=== PATIENT | female | born 1965 | race Caucasian/White ===

== ENCOUNTER 2020-03-28 21:48 | Emergency (ER) | payer MEDICAID ==
[2020-03-28] MEDS ORDERED: Cyclobenzaprine 10 MG Tab PO ONE (21:49)
[2020-03-28] MEDS ORDERED: Take Home: Cyclobenzaprine 10 MG Tab, 4 Tab Pack PO ONE (22:33)
[2020-03-28] MEDS ORDERED: Ketorolac 60 MG/2 ML SDV IM ONE (22:33)
--- NOTE | 2020-03-28 22:38 | EDM.PDOC ---
ED HPI GENERAL MEDICAL PROBLEM - General Chief Complaint: Neck Problem Stated Complaint: Neck pain Time Seen by Provider: 03/28/20 22:22 Source of Information: Reports: Patient History Limitations: Reports: No Limitations - History of Present Illness INITIAL COMMENTS - FREE TEXT/NARRATIVE: This patient reports she was brushing her hair 4 days ago and started having left sided neck and upper back pain and tightness. She reports she has tried heat, cold, oxycodone, massage and nothing has helped the pain. She denies n, v, d, f, numbness, tingling, direct trauma, urinary/natalie incontinence. Onset Date: 03/24/20 Duration: Day(s): (4) Location: Reports: Neck. Denies: Head, Face, Chest, Abdomen, Back, Pelvis, Upper Extremity, Left, Upper Extremity, Right, Lower Extremity, Left, Lower Extremity, Right, Generalized, Radiates to Quality: Reports: Other (spasm and tight) Severity: Mild Improves with: Reports: Heat Therapy, Rest Worsens with: Reports: Movement Associated Symptoms: Denies: Confusion, Chest Pain, Cough, cough w sputum, Diaphoresis, Fever/Chills, Headaches, Loss of Appetite, Malaise, Nausea/Vomiting, Rash, Seizure, Shortness of Breath, Syncope, Weakness Left Neck Pain Score (Numeric/FACES): 8 - Related Data Allergies Allergy/AdvReac Type Severity Reaction Status Date / Time Sulfa (Sulfonamide Allergy Hives Verified 03/28/20 21:55 Antibiotics) Home Meds: Home Meds Albuterol Sulfate 1 puff INH ASDIRECTED PRN 03/28/20 [History] Cyclobenzaprine [Flexeril] 10 mg PO TID PRN #21 tab 03/28/20 [Rx] Desvenlafaxine [Desvenlafaxine ER] 100 mg PO DAILY 03/28/20 [History] Famotidine 20 mg PO BEDTIME 03/28/20 [History] Gabapentin [Neurontin] 300 mg PO DAILY 03/28/20 [History] Pantoprazole [ProTONIX] 40 mg PO BID 03/28/20 [History] Potassium Chloride 20 meq PO DAILY 03/28/20 [History] Zolpidem [Ambien] 5 mg PO BEDTIME 03/28/20 [History] hydroCHLOROthiazide [Hydrochlorothiazide] 25 mg PO DAILY 03/28/20 [History] Past Medical History HEENT History: Reports: Impaired Vision Respiratory History: Reports: Asthma Gastrointestinal History: Reports: GERD, PUD Other [employer] History: Partial hysterectomy Other Musculoskeletal History: siatica - Past Surgical History HEENT Surgical History: Reports: None Respiratory Surgical History: Reports: None GI Surgical History: Reports: Hernia Repair/Other Musculoskeletal Surgical History: Reports: Carpal Tunnel Other Musculoskeletal Surgeries/Procedures:: bilateral wrists, osteotomy in toes Social & Family History - Family History Family Medical History: Noncontributory - Tobacco Use Smoking Status *Q: Current Every Day Smoker Years of Tobacco use: 35 Packs/Tins Daily: 0.5 - Caffeine Use Caffeine Use: Reports: None - Recreational Drug Use Recreational Drug Use: No ED ROS GENERAL - Review of Systems Review Of Systems: See Below Constitutional: Reports: No Symptoms HEENT: Reports: No Symptoms Respiratory: Reports: No Symptoms Cardiovascular: Reports: No Symptoms Endocrine: Reports: No Symptoms GI/Abdominal: Reports: No Symptoms : Reports: No Symptoms Musculoskeletal: Reports: Neck Pain, Muscle Pain (left neck and left upper back), Muscle Stiffness (left upper back and left neck). Denies: Shoulder Pain, Arm Pain, Back Pain, Hand Pain, Leg Pain, Foot Pain, Joint Pain, Joint Swelling Skin: Reports: No Symptoms Neurological: Reports: No Symptoms Psychiatric: Reports: No Symptoms Hematologic/Lymphatic: Reports: No Symptoms Immunologic: Reports: No Symptoms ED EXAM, UPPER BACK/NECK PAIN - Physical Exam Exam: See Below Exam Limited By: No Limitations General Appearance: Alert, WD/WN, No Apparent Distress Eye Exam: Bilateral Eye: Normal Inspection, PERRL Ears Exam: Normal External Exam, Normal Canal, Hearing Grossly Normal, Normal TMs Nose Exam: Normal Inspection, Normal Mucousa, No Blood Throat/Mouth Exam: Normal Inspection, Normal Lips, Normal Teeth, Normal Gums, Normal Oropharynx, Normal Voice, No Airway Compromise Head Exam: Atraumatic, Normocephalic Neck Exam: Normal Alignment, Normal Inspection, Limited Range of Motion (painful turning head to the left, pain in trapezius.), Muscle Spasm (left trapezius ), Painful Range of Motion, Paraspinous Muscle Tender (left lateral neck and upper back trapezius tenderness and tightness with spasm.), Tender Midline. No: Spinous Processes Tender Nexus Criteria: No: Posterior, Midline Cervical Tenderness, Evidence of Intoxication, Altered Level of Consciousness, Focal Neurological Deficit, Painful Distraction Injuries Back Exam: Normal Inspection, Full Range of Motion. No: Vertebral Tenderness Extremities: Normal Inspection, Normal Range of Motion, Non-Tender, No Pedal Edema, Normal Capillary Refill Neurologic: No Motor/Sensory Deficits, Alert, Normal Mood/Affect, Oriented x 3 Psychiatric: Normal Affect, Normal Mood Skin Exam: Normal Color, Warm/Dry Lymphatic: No Adenopathy Course - Vital Signs Last Recorded V/S: Last Vital Signs Temp 98.0 F 03/28/20 21:48 Pulse 96 03/28/20 21:48 Resp 18 03/28/20 21:48 BP 168/97 H 03/28/20 21:48 Pulse Ox 96 03/28/20 21:48 - Orders/Labs/Meds Meds: Medications Discontinued Medications Generic Name Dose Route Start Last Admin Trade Name Freq PRN Reason Stop Dose Admin Cyclobenzaprine HCl 1 packet 03/28/20 22:33 Take Home: Cyclobenzaprine 10 Mg, 4 Tab Pack PO 03/28/20 22:34 ONETIME ONE Ketorolac Tromethamine 60 mg 03/28/20 22:33 Toradol IM 03/28/20 22:34 ONETIME ONE Departure - Departure Time of Disposition: 22:34 Disposition: Home, Self-Care 01 Condition: Good Clinical Impression: Trapezius muscle strain Qualifiers: Encounter type: initial encounter Laterality: left Qualified Code(s): S46.812A - Strain of other muscles, fascia and tendons at shoulder and upper arm level, left arm, initial encounter - Discharge Information *PRESCRIPTION DRUG MONITORING PROGRAM REVIEWED*: Not Applicable *COPY OF PRESCRIPTION DRUG MONITORING REPORT IN PATIENT CHARBEL: Not Applicable Prescriptions: Cyclobenzaprine [Flexeril] 10 mg PO TID PRN #21 tab PRN Reason: Muscle Spasm Instructions: Muscle Strain, [id number], Acute Torticollis, Adult Referrals: Shanique Warren PA-C [Primary Care Provider] - Forms: ED Department Discharge Additional Instructions: Followup with primary care provider if pain continues after 5-7 days Return to the ER for emergencies such as loss of function of extremities, or any other concerns Warm heat to the area Massage the area Motrin over the counter for pain to start tomorrow Flexeril 10mg 1 pill three times a day as needed for muscle spasm #4 take home, #21 sent to pharmacy Sepsis Event Note (ED) - Evaluation Sepsis Screening Result: No Definite Risk - Focused Exam Vital Signs: Vital Signs Temp Pulse Resp BP Pulse Ox 03/28/20 21:48 98.0 F 96 18 168/97 H 96 - Assessment/Plan Plan: PLEASE SEE RN NOTE FOR PFSH
== END 2020-03-28 23:00 | disposition home or self-care (01) ==
LOC: CC.ED 21:48
DX: S46.812A Strain of other muscles, fascia and tendons at shoulder and upper arm level, left arm, initial encounter (principal); J45.909 Unspecified asthma, uncomplicated; K21.9 Gastro-esophageal reflux disease without esophagitis; F17.210 Nicotine dependence, cigarettes, uncomplicated; Z79.899 Other long term (current) drug therapy; Z88.2 Allergy status to sulfonamides; X58.XXXA Exposure to other specified factors, initial encounter
CPT/HCPCS: 96372; 99283; A9270; J1885

== ENCOUNTER → 2020-07-24 | Day surgery (SDC) | payer MEDICAID ==
[~2020-07-24] MED LIST: Ketamine 200 MG/20 ML MDV ONE; Lactated Ringers 1,000 ML IV SCH; Propofol 200 MG/20 ML SDV ONE; fentaNYL 100 MCG/2 ML SDV ONE
--- NOTE | 2020-07-27 09:06 | OR ---
DATE OF OPERATION: 07/24/2020 PREOPERATIVE DIAGNOSIS: CONSTIPATION. POSTOPERATIVE DIAGNOSIS: CONSTIPATION. SURGEON: Edmund Barrios MD PROCEDURE: FULL-LENGTH DIAGNOSTIC COLONOSCOPY. ANESTHESIA: MAC. COMPLICATIONS: None. SPECIMEN: None. FINDINGS: 1. Full-length colonoscopy. 2. Mild sigmoid diverticulosis. RECOMMENDATIONS: Followup colonoscopy per routine ACS guidelines in 10 years. INDICATIONS: The patient has been having some occasional issues with constipation. Maris Laughlinhans sent her for a diagnostic colonoscopy. DESCRIPTION OF PROCEDURE: The patient was prepped and draped, placed in a left lateral decubitus position. A lubricated Olympus colonoscope was inserted, and with relative ease, advanced to the cecum. We were able to directly visualize the ileocecal valve and appendiceal orifice. The bowel prep was adequate. Upon withdrawal of the scope throughout the entire length of the colon, I could find no signs of any polyps, masses, ulceration, or bleeding sites. No vascular abnormalities or signs of colitis. There were no obstructing processes. The patient does have mild sigmoid diverticulosis without inflammatory change. The rectal vault appeared benign. I could not retroflex in the rectum as she was very anal incompetent with air, but upon direct removal, no lesions were seen other than hemorrhoidal tissue. Air was suctioned and scope removed without complication. MARIMAR/MARY /[id number]
== END ==
LOC: CC.SDS 12:32
PROVIDERS: ATTEND Family Medicine
DX: K57.30 Diverticulosis of large intestine without perforation or abscess without bleeding (principal); K59.00 Constipation, unspecified; K64.9 Unspecified hemorrhoids; F41.9 Anxiety disorder, unspecified; J45.909 Unspecified asthma, uncomplicated; F32.9 Major depressive disorder, single episode, unspecified; I10 Essential (primary) hypertension; K21.9 Gastro-esophageal reflux disease without esophagitis; E78.5 Hyperlipidemia, unspecified; Z01.812 Encounter for preprocedural laboratory examination; Z20.828 Contact with and (suspected) exposure to other viral communicable diseases; Z88.2 Allergy status to sulfonamides; Z88.5 Allergy status to narcotic agent; Z79.899 Other long term (current) drug therapy; Z98.890 Other specified postprocedural states
CPT/HCPCS: J2704; J3010; J7120

== ENCOUNTER 2021-07-15 05:11 | Emergency (ER) | payer MEDICAID ==
[2021-07-15] MEDS: Ketorolac 30 MG/ML SDV IM ONE (05:36)
--- NOTE | 2021-07-15 05:43 | EDM.PDOC ---
ED HPI GENERAL MEDICAL PROBLEM - General Chief Complaint: Back Pain or Injury Stated Complaint: R)sided sciatic pain Time Seen by Provider: 07/15/21 05:22 - History of Present Illness INITIAL COMMENTS - FREE TEXT/NARRATIVE: This is a 55 year old female that presents to the ED with complaints of lower back pain that "goes down my right leg." States that the pain has been gradually worsening the past two week. Reports it is much more severe tonight and has prevented her from sleeping. Pain is described a sharp shooting. Reports having this pain in the past and had PT "a long time ago." She is on gabapentin and has tried OTC NSAIDs over the past couple of weeks. Denies any trauma or recent injury. Denies any sensation loss to the lower extremities. Urinating "ok." Reports that she "always has issues with constipation. Right Lower Back Pain Score (Numeric/FACES): 7 - Related Data Allergies Allergy/AdvReac Type Severity Reaction Status Date / Time oxycodone Allergy Itching Verified 07/15/21 05:15 Sulfa (Sulfonamide Allergy Hives Verified 07/15/21 05:15 Antibiotics) Home Meds: Home Meds Desvenlafaxine [Desvenlafaxine ER] 100 mg PO DAILY 03/28/20 [History] Gabapentin [Neurontin] 300 mg PO DAILY 03/28/20 [History] Zolpidem [Ambien] 5 mg PO BEDTIME PRN 03/28/20 [History] Albuterol [Ventolin HFA] 2 puff INH Q4H PRN 07/14/20 [History] Cetirizine [ZyrTEC] 10 mg PO DAILY PRN 07/14/20 [History] Rosuvastatin [Crestor] 5 mg PO DAILY 07/24/20 [History] amLODIPine [Norvasc] 1 tab PO DAILY 07/24/20 [History] Cyclobenzaprine [Flexeril] 10 mg PO TID PRN #30 tab 07/15/21 [Rx] Dexlansoprazole [Dexilant] 60 mg PO DAILY 07/15/21 [History] Meloxicam 15 mg PO DAILY 14 Days #14 tablet 07/15/21 [Rx] Past Medical History HEENT History: Reports: Impaired Vision Respiratory History: Reports: Asthma Gastrointestinal History: Reports: GERD, PUD Other [employer] History: Partial hysterectomy Other Musculoskeletal History: siatica - Past Surgical History HEENT Surgical History: Reports: None Respiratory Surgical History: Reports: None GI Surgical History: Reports: Hernia Repair/Other Musculoskeletal Surgical History: Reports: Carpal Tunnel Other Musculoskeletal Surgeries/Procedures:: bilateral wrists, osteotomy in toes Social & Family History - Family History Family Medical History: No Pertinent Family History - Tobacco Use Tobacco Use Status *Q: Never Tobacco User - Caffeine Use Caffeine Use: Reports: None ED ROS GENERAL - Review of Systems Review Of Systems: See Below Constitutional: Denies: Fever, Chills, Malaise HEENT: Reports: No Symptoms Respiratory: Reports: No Symptoms. Denies: Shortness of Breath, Cough Cardiovascular: Denies: Chest Pain, Dyspnea on Exertion Endocrine: Reports: No Symptoms GI/Abdominal: Reports: Constipation. Denies: Abdominal Pain, Diarrhea, Nausea, Vomiting : Denies: Dysuria, Flank Pain, Frequency, Hematuria, Incontinence Musculoskeletal: Reports: Back Pain (lower right side back), Leg Pain (back pain radiates to right leg) Skin: Reports: No Symptoms Neurological: Denies: Numbness, Paresthesia, Tingling Psychiatric: Reports: No Symptoms Hematologic/Lymphatic: Reports: No Symptoms Immunologic: Reports: No Symptoms ED EXAM,LOWER BACK PAIN/INJURY - Physical Exam Exam: See Below Exam Limited By: No Limitations General Appearance: Alert, WD/WN, Mild Distress Ears: Normal External Exam Nose: Normal Inspection Throat/Mouth: No Airway Compromise Head: Atraumatic, Normocephalic Neck: Normal Inspection Respiratory/Chest: No Respiratory Distress, Lungs Clear, Normal Breath Sounds, No Accessory Muscle Use. No: Crackles, Rales, Rhonchi, Wheezing Cardiovascular: Normal Peripheral Pulses, Regular Rate, Rhythm, No Edema, No Gallop, No JVD, No Murmur, No Rub GI/Abdominal: Normal Bowel Sounds, Soft, Non-Tender, No Distention (Female) Exam: Deferred Rectal (Female) Exam: Deferred Back Exam: Normal Inspection, Full Range of Motion, Other (tenderness to right side sciatic area, no step offs or deformities noted upon palpation) Extremities: Normal Inspection, Normal Range of Motion, Leg Pain (shooting from right upper leg to the foot. CMS intact. Sensation throughout) Neurological: Alert, Normal Mood/Affect, No Motor/Sensory Deficits, Oriented x 3 Psychiatric: Normal Affect, Normal Mood Skin Exam: Warm, Dry, Intact Lymphatic: No Adenopathy Course - Vital Signs Last Recorded V/S: Last Vital Signs Temp 96.3 F L 07/15/21 05:12 Pulse 102 H 07/15/21 05:12 Resp 18 07/15/21 05:12 BP 131/74 07/15/21 05:12 Pulse Ox 99 07/15/21 05:12 - Orders/Labs/Meds Meds: Medications Discontinued Medications Generic Name Dose Route Start Last Admin Trade Name Russell PRN Reason Stop Dose Admin Ketorolac Tromethamine 30 mg 07/15/21 05:33 Ketorolac 30 Mg/Ml Sdv IM 07/15/21 05:34 ONETIME ONE - Re-Assessments/Exams Free Text/Narrative Re-Assessment/Exam: This is a 55 year old female that presents to the ED with lower back pain that radiates to the right lower leg and consistent with sciatica. Patient given toradol 30 mg and Norflex 60 mg both IM in the ED. Discussed with patient treatments for sciatica to include heat and stretches. Also discussed physical therapy which she has had in the past. Plan to discharge patient with meloxicam and cyclobenzaprine until she can be reevaluated at a scheduled appointment with her PCP on Monday. Will also place a referral to PT to evaluate and treat. Patient agreeable to the plan. Departure - Departure Time of Disposition: 06:02 Disposition: Home, Self-Care 01 Condition: Fair Clinical Impression: Sciatica Qualifiers: Laterality: right Qualified Code(s): M54.31 - Sciatica, right side - Discharge Information *PRESCRIPTION DRUG MONITORING PROGRAM REVIEWED*: Not Applicable *COPY OF PRESCRIPTION DRUG MONITORING REPORT IN PATIENT CHARBEL: Not Applicable Instructions: Sciatica Forms: ED Department Discharge Additional Instructions: 1. Prescriptions for meloxicam and cyclobenzaprine to pharmacy. Take as prescribed. 2. Physical therapy referral is completed. Please call to set-up an appointment. 3. May use heat, ice, and gently stretch the area. 4. Activity as tolerated. 5. Keep follow-up appointment with your primary care provider. 6. Call or return if symptoms are worsening or if you have any questions. Sepsis Event Note (ED) - Focused Exam Vital Signs: Vital Signs Temp Pulse Resp BP Pulse Ox 07/15/21 05:12 96.3 F L 102 H 18 131/74 99
[2021-07-15] MEDS: Orphenadrine 60 MG/2 ML Inj IM ONE (06:08)
== END 2021-07-15 06:22 | disposition home or self-care (01) ==
LOC: CC.ED 05:11
DX: M54.41 Lumbago with sciatica, right side (principal); K21.9 Gastro-esophageal reflux disease without esophagitis; Z88.5 Allergy status to narcotic agent; Z88.2 Allergy status to sulfonamides; Z79.899 Other long term (current) drug therapy
CPT/HCPCS: 96372; 99283; J1885; J2360

== ENCOUNTER 2022-09-14 15:26 | Emergency (ER) | payer BC, MEDICAID ==
[2022-09-14] MEDS ORDERED: LORazepam 0.5 MG Tab PO ONE (15:50)
[2022-09-14] MEDS ORDERED: Ketorolac 60 MG/2 ML SDV IM ONE (16:27)
== END 2022-09-14 16:50 | disposition home or self-care (01) ==
LOC: CC.ED 15:26
DX: M54.6 Pain in thoracic spine (principal); J45.909 Unspecified asthma, uncomplicated; K21.9 Gastro-esophageal reflux disease without esophagitis; F41.9 Anxiety disorder, unspecified; Z88.2 Allergy status to sulfonamides; Z88.5 Allergy status to narcotic agent
CPT/HCPCS: 96372; 99283; 99284; A9270-GY; J1885

== ENCOUNTER → 2022-09-23 | Day surgery (SDC) | payer BC ==
[~2022-09-23] MED LIST changes: -Lactated Ringers 1,000 ML IV SCH; +Lidocaine 2% 5 ML SDV ONE; -fentaNYL 100 MCG/2 ML SDV ONE; +fentaNYL 50 MCG/ML SDV ONE
[2022-09-23] MEDS: Lactated Ringers 1,000 ML IV SCH (12:08)
== END ==
LOC: CC.SDS 11:24
PROVIDERS: ATTEND Family Medicine
DX: D13.1 Benign neoplasm of stomach (principal); K22.70 Barrett's esophagus without dysplasia; K21.00 Gastro-esophageal reflux disease with esophagitis, without bleeding; I10 Essential (primary) hypertension; F41.9 Anxiety disorder, unspecified; M19.90 Unspecified osteoarthritis, unspecified site; J45.909 Unspecified asthma, uncomplicated; F32.A Depression, unspecified; E78.5 Hyperlipidemia, unspecified; F17.210 Nicotine dependence, cigarettes, uncomplicated; Z88.2 Allergy status to sulfonamides; Z88.5 Allergy status to narcotic agent; Z79.899 Other long term (current) drug therapy; Z98.890 Other specified postprocedural states
CPT/HCPCS: 00731; 87081; J2704; J3010; J3490; J7120

== ENCOUNTER 2023-04-15 10:31 | Emergency (ER) | payer BC, OTHER ==
[2023-04-15 10:58] LABS: BASOPHILS ABSOLUTE AUTO 0.03 10^3/uL (0.00-0.50); BASOPHILS PERCENT AUTO 0.2 % (0-1); EOSINOPHILS ABSOLUTE AUTO 0.22 10^3/uL (0.00-1.50); EOSINOPHILS PERCENT AUTO 1.7 % (0-6); HEMATOCRIT 31.6 % (37.0-47.0); HEMOGLOBIN 10.7 g/dL (12.0-16.0); IMMATURE GRAN ABSOLUTE AUTO 0.02 10^3/uL (0.00-0.49); IMMATURE GRAN PERCENT AUTO 0.2 % (0.0-4.9); LYMPHOCYTES ABSOLUTE AUTO 0.85 10^3/uL (0.60-5.00); LYMPHOCYTES PERCENT AUTO 6.6 % (24-44); MEAN CORPUSCULAR HGB CONC 33.9 g/dL (32.0-36.0); MEAN CORPUSCULAR VOLUME 85.6 fL (83.0-97.0); MONOCYTES ABSOLUTE AUTO 0.94 10^3/uL (0.00-1.50); MONOCYTES PERCENT AUTO 7.3 % (0-10); NEUTROPHILS ABSOLUTE AUTO 10.82 x10^3/uL (1.80-8.00); PLATELET COUNT,PLT 226 10^3/uL (150-400); RED BLOOD CELL COUNT 3.69 x10^6/uL (4.00-5.50); WHITE BLOOD CELL COUNT,WBC 12.9 10^3/uL (4.0-11.0)
[2023-04-15] MEDS: HYDROmorphone 1 MG/ML Syringe IVPUSH ONE (11:08)
[2023-04-15] MEDS: Ondansetron 4 MG/2 ML SDV IVPUSH STA (11:08)
[2023-04-15] MEDS: Lactated Ringers 1,000 ML IV STA (11:10)
[2023-04-15 11:12] LABS: ALBUMIN 2.9 g/dL (3.4-5.0); BILIRUBIN TOTAL 0.5 mg/dL (0.0-1.0); CALCIUM 8.2 mg/dL (8.4-10.1); CREATININE 0.7 mg/dL (0.6-1.0); EST CRCL DRUG DOSING (CG) 65.23 mL/min; MAGNESIUM 1.7 mg/dL (1.8-2.4); PROTEIN TOTAL,TP 6.5 g/dL (6.4-8.2)
[2023-04-15] MEDS: Iopamidol 755 Mg/ML 100 ML Bottle IVPUSH ONE (11:55)
[2023-04-15] MEDS: Take Home: traMADol 50 MG, 4 Tab Pack PO ONE (13:17)
== END 2023-04-15 13:20 | disposition home or self-care (01) ==
LOC: CC.ED 10:31
DX: G89.18 Other acute postprocedural pain (principal); R10.84 Generalized abdominal pain; J45.909 Unspecified asthma, uncomplicated; K21.9 Gastro-esophageal reflux disease without esophagitis; Z88.5 Allergy status to narcotic agent; Z88.2 Allergy status to sulfonamides; Z79.899 Other long term (current) drug therapy
CPT/HCPCS: 36415; 74177; 80053; 83605; 83690; 83735; 85025; 96361; 96374; 96375; 99284; 99284-25; A9270-GY; J1170; J2405; J7120; Q9967

== ENCOUNTER 2023-04-16 22:57 | Inpatient (IN) | payer BC, OTHER ==
[2023-04-16] MEDS ORDERED: Sodium Chloride 0.9% 1,000 ML IV STA (23:32)
[2023-04-16] MEDS ORDERED: HYDROmorphone 0.5 MG/0.5 ML Syringe IVPUSH ONE (23:33)
[2023-04-16] MEDS ORDERED: Ondansetron 4 MG/2 ML SDV IVPUSH STA (23:33)
[2023-04-16] MEDS ORDERED: Albuterol/Ipratropium 3.0-0.5 MG/3 ML Neb Soln NEB ONE (23:34)
[2023-04-17 00:01] LABS: BASOPHILS ABSOLUTE AUTO 0.03 10^3/uL (0.00-0.50); BASOPHILS PERCENT AUTO 0.3 % (0-1); EOSINOPHILS ABSOLUTE AUTO 0.33 10^3/uL (0.00-1.50); EOSINOPHILS PERCENT AUTO 3.5 % (0-6); HEMATOCRIT 28.8 % (37.0-47.0); HEMOGLOBIN 9.6 g/dL (12.0-16.0); IMMATURE GRAN ABSOLUTE AUTO 0.01 10^3/uL (0.00-0.49); IMMATURE GRAN PERCENT AUTO 0.1 % (0.0-4.9); LYMPHOCYTES ABSOLUTE AUTO 0.81 10^3/uL (0.60-5.00); LYMPHOCYTES PERCENT AUTO 8.7 % (24-44); MEAN CORPUSCULAR HEMOGLOBIN 28.9 pg (27.0-32.0); MEAN CORPUSCULAR HGB CONC 33.3 g/dL (32.0-36.0); MEAN CORPUSCULAR VOLUME 86.7 fL (83.0-97.0); MONOCYTES ABSOLUTE AUTO 0.86 10^3/uL (0.00-1.50); MONOCYTES PERCENT AUTO 9.2 % (0-10); NEUTROPHILS ABSOLUTE AUTO 7.28 x10^3/uL (1.80-8.00); NEUTROPHILS PERCENT AUTO 78.2 % (41-71); PLATELET COUNT,PLT 229 10^3/uL (150-400); RED BLOOD CELL COUNT 3.32 x10^6/uL (4.00-5.50); WHITE BLOOD CELL COUNT,WBC 9.3 10^3/uL (4.0-11.0)
[2023-04-17 00:17] LABS: ALBUMIN 2.7 g/dL (3.4-5.0); BILIRUBIN TOTAL 0.3 mg/dL (0.0-1.0); CALCIUM 8.2 mg/dL (8.4-10.1); CREATININE 0.9 mg/dL (0.6-1.0); EST CRCL DRUG DOSING (CG) 50.73 mL/min; MAGNESIUM 1.9 mg/dL (1.8-2.4); POTASSIUM,K 3.8 mEq/L (3.5-5.0); PROTEIN TOTAL,TP 6.3 g/dL (6.4-8.2)
[2023-04-17 00:28] LABS: APPEARANCE,URINE CLEAR (CLEAR); COLOR,URINE YELLOW (YELLOW); GLUCOSE,URINE NEGATIVE (NEGATIVE); KETONES,URINE 40 mg/dL (NEGATIVE); LEUKOCYTE ESTERASE,URINE NEGATIVE (NEGATIVE); NITRITE,URINE NEGATIVE (NEGATIVE); OCCULT BLOOD,URINE TRACE-INTACT (NEGATIVE); PROTEIN,URINE 30 mg/dL (NEGATIVE); UROBILINOGEN,URINE 0.2 EU/dL (0.2-1.0)
[2023-04-17 00:30] LABS: BILIRUBIN,URINE SMALL (NEGATIVE)
[2023-04-17 00:34] LABS: BACTERIA,URINE OCCASIONAL /HPF (NOT SEEN); EPITHELIAL CELLS,URINE MODERATE /HPF (NOT SEEN); RBC,URINE 0-5 /HPF (0-5); WBC,URINE 0-5 /HPF (0-5)
[2023-04-17] MEDS ORDERED: Iopamidol 755 Mg/ML 100 ML Bottle IVPUSH ONE (00:34)
[2023-04-17] MEDS ORDERED: methylPREDNISolone Sodium Succinate 125 MG/2 ML SDV IVPUSH STA (01:21)
[2023-04-17] MEDS ORDERED: Piperacillin/Tazobactam 4.5 GM in Sodium Chloride 0.9% 100 ML IV ONE (01:21)
[2023-04-17] MEDS ORDERED: Albuterol 6.7 GM Inhaler INH PRN (02:33)
[2023-04-17] MEDS ORDERED: Polyethylene Glycol 3350 Powder 17 GM Packet PO PRN (02:33)
[2023-04-17] MEDS ORDERED: Docusate Sodium 100 MG Cap PO PRN (02:33)
[2023-04-17] MEDS ORDERED: Cyclobenzaprine 10 MG Tab PO PRN (02:33)
[2023-04-17] MEDS ORDERED: Albuterol 0.083% 2.5 MG/3 ML Neb Soln NEB PRN (02:33)
[2023-04-17] MEDS ORDERED: Zolpidem 5 MG Tab PO PRN (02:33)
[2023-04-17] MEDS ORDERED: Sodium Chloride 0.9% 1,000 ML IV STA (02:33)
[2023-04-17] MEDS ORDERED: ESTRADIOL TOP SCH (02:33)
[2023-04-17] MEDS: HYDROmorphone 0.5 MG/0.5 ML Syringe IVPUSH PRN ×2 (03:16→07:50)
[2023-04-17] MEDS ORDERED: Ondansetron 4 MG/2 ML SDV IV PRN (06:00)
[2023-04-17 07:34] LABS: EOSINOPHILS ABSOLUTE AUTO 0.01 10^3/uL (0.00-1.50); EOSINOPHILS PERCENT AUTO 0.1 % (0-6); HEMATOCRIT 28.9 % (37.0-47.0); HEMOGLOBIN 9.6 g/dL (12.0-16.0); IMMATURE GRAN ABSOLUTE AUTO 0.02 10^3/uL (0.00-0.49); IMMATURE GRAN PERCENT AUTO 0.3 % (0.0-4.9); LYMPHOCYTES PERCENT AUTO 2.6 % (24-44); MEAN CORPUSCULAR HEMOGLOBIN 28.8 pg (27.0-32.0); MEAN CORPUSCULAR HGB CONC 33.2 g/dL (32.0-36.0); MEAN CORPUSCULAR VOLUME 86.8 fL (83.0-97.0); MONOCYTES ABSOLUTE AUTO 0.19 10^3/uL (0.00-1.50); MONOCYTES PERCENT AUTO 2.5 % (0-10); NEUTROPHILS PERCENT AUTO 94.5 % (41-71); PLATELET COUNT,PLT 244 10^3/uL (150-400); RED BLOOD CELL COUNT 3.33 x10^6/uL (4.00-5.50); WHITE BLOOD CELL COUNT,WBC 7.7 10^3/uL (4.0-11.0)
[2023-04-17] MEDS: amLODIPine 2.5 MG Tab PO SCH (07:49)
[2023-04-17] MEDS: Simvastatin 20 MG Tab PO SCH (07:49)
[2023-04-17] MEDS: Venlafaxine 75 MG Cap.ER PO SCH (07:49)
[2023-04-17] MEDS: Gabapentin 300 MG Cap PO SCH ×2 (07:49→19:06)
[2023-04-17] MEDS: Piperacillin/Tazobactam 3.375 GM in Sodium Chloride 0.9% 100 ML IV SCH ×3 (07:50→23:47)
[2023-04-17] MEDS: Albuterol/Ipratropium 3.0-0.5 MG/3 ML Neb Soln NEB SCH ×4 (07:50→19:06)
[2023-04-17] MEDS ORDERED: methylPREDNISolone Sodium Succinate 40 MG/1 ML SDV IVPUSH SCH (08:00)
[2023-04-17 08:01] LABS: CALCIUM 7.9 mg/dL (8.4-10.1); CREATININE 0.7 mg/dL (0.6-1.0); EST CRCL DRUG DOSING (CG) 65.23 mL/min; MAGNESIUM 2.1 mg/dL (1.8-2.4); POTASSIUM,K 4.3 mEq/L (3.5-5.0)
[2023-04-17] MEDS: methylPREDNISolone Sodium Succinate 40 MG/1 ML SDV IVPUSH SCH ×2 (12:04→19:06)
[2023-04-17] MEDS: Acetaminophen/oxyCODONE 325-5 MG Tab PO SCH ×2 (14:15→19:06)
[2023-04-17] MEDS ORDERED: Enoxaparin 40 MG/0.4 ML Syringe SUBCUT SCH (20:00)
[2023-04-18 07:40] LABS: BASOPHILS ABSOLUTE AUTO 0.01 10^3/uL (0.00-0.50); BASOPHILS PERCENT AUTO 0.1 % (0-1); HEMOGLOBIN 8.8 g/dL (12.0-16.0); IMMATURE GRAN ABSOLUTE AUTO 0.04 10^3/uL (0.00-0.49); IMMATURE GRAN PERCENT AUTO 0.4 % (0.0-4.9); LYMPHOCYTES ABSOLUTE AUTO 0.33 10^3/uL (0.60-5.00); LYMPHOCYTES PERCENT AUTO 3.4 % (24-44); MEAN CORPUSCULAR HEMOGLOBIN 28.9 pg (27.0-32.0); MEAN CORPUSCULAR HGB CONC 33.8 g/dL (32.0-36.0); MEAN CORPUSCULAR VOLUME 85.2 fL (83.0-97.0); MONOCYTES ABSOLUTE AUTO 0.74 10^3/uL (0.00-1.50); MONOCYTES PERCENT AUTO 7.7 % (0-10); NEUTROPHILS ABSOLUTE AUTO 8.45 x10^3/uL (1.80-8.00); NEUTROPHILS PERCENT AUTO 88.4 % (41-71); PLATELET COUNT,PLT 275 10^3/uL (150-400); RED BLOOD CELL COUNT 3.05 x10^6/uL (4.00-5.50); WHITE BLOOD CELL COUNT,WBC 9.6 10^3/uL (4.0-11.0)
[2023-04-18] MEDS: Simvastatin 20 MG Tab PO SCH (07:59)
[2023-04-18] MEDS: amLODIPine 2.5 MG Tab PO SCH (07:59)
[2023-04-18] MEDS: Gabapentin 300 MG Cap PO SCH (07:59)
[2023-04-18] MEDS: Albuterol/Ipratropium 3.0-0.5 MG/3 ML Neb Soln NEB SCH (07:59)
[2023-04-18] MEDS: Piperacillin/Tazobactam 3.375 GM in Sodium Chloride 0.9% 100 ML IV SCH (08:00)
[2023-04-18] MEDS: Acetaminophen/oxyCODONE 325-5 MG Tab PO SCH (08:00)
[2023-04-18] MEDS: Venlafaxine 75 MG Cap.ER PO SCH (08:00)
[2023-04-18] MEDS: methylPREDNISolone Sodium Succinate 40 MG/1 ML SDV IVPUSH SCH (08:00)
[2023-04-18 08:02] LABS: ALBUMIN 2.7 g/dL (3.4-5.0); BILIRUBIN TOTAL 0.2 mg/dL (0.0-1.0); CALCIUM 8.3 mg/dL (8.4-10.1); CREATININE 0.7 mg/dL (0.6-1.0); EST CRCL DRUG DOSING (CG) 65.23 mL/min; POTASSIUM,K 3.5 mEq/L (3.5-5.0); PROTEIN TOTAL,TP 6.5 g/dL (6.4-8.2)
== END 2023-04-18 12:00 | disposition home or self-care (01) | DRG 137 ==
LOC: CC.ED 22:57 → CC.MS 04-17 01:28 → UNDOADMIN 04-17 02:31 → CC.MS 04-17 02:31
PROVIDERS: ADMIT Nurse Practitioner; ATTEND Nurse Practitioner
DX: J69.0 Pneumonitis due to inhalation of food and vomit (principal); J18.9 Pneumonia, unspecified organism; R09.02 Hypoxemia; J90 Pleural effusion, not elsewhere classified; K21.9 Gastro-esophageal reflux disease without esophagitis; G89.18 Other acute postprocedural pain; R10.10 Upper abdominal pain, unspecified; J45.909 Unspecified asthma, uncomplicated; Z88.5 Allergy status to narcotic agent; Z88.2 Allergy status to sulfonamides; Z87.11 Personal history of peptic ulcer disease; Z98.890 Other specified postprocedural states; Z79.899 Other long term (current) drug therapy; Z90.710 Acquired absence of both cervix and uterus
CPT/HCPCS: 36415; 71046; 71275; 80048; 80053; 81001; 83605; 83735; 85025; 85379; 87040; 87070; 87205; 94640; 96361; 96374; 96375; 99223; 99238; 99285-25; A9270-GY; J1170; J1650; J2405; J2543; J2920; J2930; J3490; J7030; J7620-GY; Q9967

== ENCOUNTER 2023-04-20 10:42 | Emergency (ER) | payer BC ==
[2023-04-20 11:26] LABS: BASOPHILS ABSOLUTE AUTO 0.04 10^3/uL (0.00-0.50); BASOPHILS PERCENT AUTO 0.4 % (0-1); EOSINOPHILS ABSOLUTE AUTO 0.75 10^3/uL (0.00-1.50); EOSINOPHILS PERCENT AUTO 6.6 % (0-6); HEMOGLOBIN 12.7 g/dL (12.0-16.0); IMMATURE GRAN ABSOLUTE AUTO 0.07 10^3/uL (0.00-0.49); IMMATURE GRAN PERCENT AUTO 0.6 % (0.0-4.9); LYMPHOCYTES PERCENT AUTO 9.7 % (24-44); MEAN CORPUSCULAR HEMOGLOBIN 28.5 pg (27.0-32.0); MEAN CORPUSCULAR HGB CONC 33.4 g/dL (32.0-36.0); MEAN CORPUSCULAR VOLUME 85.2 fL (83.0-97.0); MONOCYTES PERCENT AUTO 7.9 % (0-10); NEUTROPHILS ABSOLUTE AUTO 8.51 x10^3/uL (1.80-8.00); NEUTROPHILS PERCENT AUTO 74.8 % (41-71); PLATELET COUNT,PLT 472 10^3/uL (150-400); RED BLOOD CELL COUNT 4.46 x10^6/uL (4.00-5.50); WHITE BLOOD CELL COUNT,WBC 11.4 10^3/uL (4.0-11.0)
[2023-04-20] MEDS: Sodium Chloride 0.9% 1,000 ML IV ONE (11:30)
[2023-04-20 11:39] LABS: ALBUMIN 3.2 g/dL (3.4-5.0); BILIRUBIN TOTAL 0.4 mg/dL (0.0-1.0); CALCIUM 9.1 mg/dL (8.4-10.1); CREATININE 0.8 mg/dL (0.6-1.0); EST CRCL DRUG DOSING (CG) 57.07 mL/min; POTASSIUM,K 5.1 mEq/L (3.5-5.0); PROTEIN TOTAL,TP 7.7 g/dL (6.4-8.2)
[2023-04-20] MEDS: Iopamidol 755 Mg/ML 100 ML Bottle IVPUSH ONE (14:00)
== END 2023-04-20 15:45 | disposition home or self-care (01) ==
LOC: CC.ED 10:42
DX: K91.89 Other postprocedural complications and disorders of digestive system (principal); E78.00 Pure hypercholesterolemia, unspecified; I10 Essential (primary) hypertension; Z87.891 Personal history of nicotine dependence; Z88.2 Allergy status to sulfonamides; Z88.5 Allergy status to narcotic agent; Z79.899 Other long term (current) drug therapy
CPT/HCPCS: 36415; 74177; 80053; 85025; 87493; 96360; 99284; 99284-25; J7030; Q9967

== ENCOUNTER 2024-06-11 07:42 | Emergency (ER) | payer BC, OTHER ==
[2024-06-11] MEDS: Ondansetron 4 MG Tab.DIS PO ONE (08:25)
[2024-06-11 08:36] LABS: BASOPHILS ABSOLUTE AUTO 0.07 10^3/uL (0.00-0.50); BASOPHILS PERCENT AUTO 0.8 % (0-1); EOSINOPHILS ABSOLUTE AUTO 0.19 10^3/uL (0.00-1.50); EOSINOPHILS PERCENT AUTO 2.1 % (0-6); HEMATOCRIT 39.8 % (37.0-47.0); IMMATURE GRAN ABSOLUTE AUTO 0.01 10^3/uL (0.00-0.49); IMMATURE GRAN PERCENT AUTO 0.1 % (0.0-4.9); LYMPHOCYTES ABSOLUTE AUTO 1.39 10^3/uL (0.60-5.00); LYMPHOCYTES PERCENT AUTO 15.4 % (24-44); MEAN CORPUSCULAR HEMOGLOBIN 29.3 pg (27.0-32.0); MEAN CORPUSCULAR HGB CONC 32.7 g/dL (32.0-36.0); MEAN CORPUSCULAR VOLUME 89.8 fL (83.0-97.0); MONOCYTES ABSOLUTE AUTO 0.78 10^3/uL (0.00-1.50); MONOCYTES PERCENT AUTO 8.7 % (0-10); NEUTROPHILS ABSOLUTE AUTO 6.56 x10^3/uL (1.80-8.00); NEUTROPHILS PERCENT AUTO 72.9 % (41-71); PLATELET COUNT,PLT 266 10^3/uL (150-400); RED BLOOD CELL COUNT 4.43 x10^6/uL (4.00-5.50)
[2024-06-11 08:38] LABS: APPEARANCE,URINE CLEAR (CLEAR); BILIRUBIN,URINE NEGATIVE (NEGATIVE); COLOR,URINE YELLOW (YELLOW); GLUCOSE,URINE NEGATIVE (NEGATIVE); KETONES,URINE NEGATIVE (NEGATIVE); LEUKOCYTE ESTERASE,URINE NEGATIVE (NEGATIVE); NITRITE,URINE NEGATIVE (NEGATIVE); OCCULT BLOOD,URINE NEGATIVE (NEGATIVE); PH,URINE 6.5 (4.5-8.0); PROTEIN,URINE NEGATIVE (NEGATIVE); UROBILINOGEN,URINE 0.2 EU/dL (0.2-1.0)
[2024-06-11 08:49] LABS: ALANINE AMINOTRANSFERASE,ALT 40 U/L (12-78); ALBUMIN 3.8 g/dL (3.4-5.0); ALKALINE PHOSPHATASE 123 U/L (46-116); ASPARTATE AMNIOTRANSFERASE,AST 32 U/L (15-37); BILIRUBIN TOTAL 0.3 mg/dL (0.0-1.0); BLOOD UREA NITROGEN,BUN 16 mg/dL (7-18); CALCIUM 8.5 mg/dL (8.4-10.1); CARBON DIOXIDE,CO2 30 mmol/L (21-32); CHLORIDE,CL 106 mEq/L (98-106); CREATININE 0.8 mg/dL (0.6-1.0); EST CRCL DRUG DOSING (CG) 56.23 mL/min; GLUCOSE RANDOM 95 mg/dL (75-99); POTASSIUM,K 4.6 mEq/L (3.5-5.0); PROTEIN TOTAL,TP 6.6 g/dL (6.4-8.2); SODIUM,NA 143 mEq/L (136-145)
[2024-06-11 08:51] LABS: C-REACTIVE PROTEIN < 0.50 mg/dL (<=0.50); ESTIMATED GFR 86 mL/min (>=60)
== END 2024-06-11 09:45 | disposition home or self-care (01) ==
LOC: CC.ED 07:42
DX: G43.909 Migraine, unspecified, not intractable, without status migrainosus (principal); E78.00 Pure hypercholesterolemia, unspecified; I10 Essential (primary) hypertension; J45.909 Unspecified asthma, uncomplicated; F17.210 Nicotine dependence, cigarettes, uncomplicated; Z79.899 Other long term (current) drug therapy; Z88.5 Allergy status to narcotic agent; Z88.2 Allergy status to sulfonamides
CPT/HCPCS: 36415; 80053; 81003; 85025; 86140; 87428-QW; 99283; 99284; A9270-GY

== ENCOUNTER 2024-09-25 06:58 | Emergency (ER) | payer BC ==
[2024-09-25 07:37] LABS: BASOPHILS ABSOLUTE AUTO 0.03 10^3/uL (0.00-0.50); BASOPHILS PERCENT AUTO 0.7 % (0-1); EOSINOPHILS ABSOLUTE AUTO 0.02 10^3/uL (0.00-1.50); EOSINOPHILS PERCENT AUTO 0.5 % (0-6); HEMOGLOBIN 12.3 g/dL (12.0-16.0); IMMATURE GRAN ABSOLUTE AUTO 0.02 10^3/uL (0.00-0.49); IMMATURE GRAN PERCENT AUTO 0.5 % (0.0-4.9); LYMPHOCYTES ABSOLUTE AUTO 0.49 10^3/uL (0.60-5.00); LYMPHOCYTES PERCENT AUTO 11.6 % (24-44); MEAN CORPUSCULAR HEMOGLOBIN 29.6 pg (27.0-32.0); MEAN CORPUSCULAR HGB CONC 33.2 g/dL (32.0-36.0); MEAN CORPUSCULAR VOLUME 88.9 fL (83.0-97.0); MONOCYTES ABSOLUTE AUTO 0.82 10^3/uL (0.00-1.50); MONOCYTES PERCENT AUTO 19.4 % (0-10); NEUTROPHILS ABSOLUTE AUTO 2.84 x10^3/uL (1.80-8.00); NEUTROPHILS PERCENT AUTO 67.3 % (41-71); PLATELET COUNT,PLT 179 10^3/uL (150-400); RED BLOOD CELL COUNT 4.16 x10^6/uL (4.00-5.50); WHITE BLOOD CELL COUNT,WBC 4.2 10^3/uL (4.0-11.0)
[2024-09-25 07:50] LABS: ALBUMIN 3.4 g/dL (3.4-5.0); BILIRUBIN TOTAL 0.2 mg/dL (0.0-1.0); C-REACTIVE PROTEIN 2.86 mg/dL (<=0.50); CALCIUM 7.8 mg/dL (8.4-10.1); CREATININE 0.9 mg/dL (0.6-1.0); EST CRCL DRUG DOSING (CG) 49.54 mL/min; POTASSIUM,K 4.3 mEq/L (3.5-5.0); PROTEIN TOTAL,TP 6.4 g/dL (6.4-8.2)
[2024-09-25] MEDS: Acetaminophen 325 MG Tab PO STA (07:54)
[2024-09-25 08:14] LABS: CORONAVIRUS COVID-19 NAA NEGATIVE (NEGATIVE); INFLUENZA A NAA POSITIVE (NEGATIVE); INFLUENZA B NAA NEGATIVE (NEGATIVE)
== END 2024-09-25 08:30 | disposition home or self-care (01) ==
LOC: CC.ED 06:58 → SUPCPDRO 06:58 → CC.ED 08:30
DX: J10.1 Influenza due to other identified influenza virus with other respiratory manifestations (principal); I10 Essential (primary) hypertension; E78.00 Pure hypercholesterolemia, unspecified; J45.909 Unspecified asthma, uncomplicated; F17.210 Nicotine dependence, cigarettes, uncomplicated; Z90.710 Acquired absence of both cervix and uterus; Z88.2 Allergy status to sulfonamides; Z88.5 Allergy status to narcotic agent; Z79.51 Long term (current) use of inhaled steroids; Z79.899 Other long term (current) drug therapy
CPT/HCPCS: 0240U; 36415; 80053; 85025; 86140; 99283; 99284; A9270-GY

== ENCOUNTER 2025-01-17 22:10 | Emergency (ER) | payer BC, MEDICAID ==
[2025-01-17] MEDS: Hydrocortisone 2.5% Crm 30 GM Tube TOP SCH (22:41)
== END 2025-01-17 22:47 | disposition home or self-care (01) ==
LOC: CC.ED 22:10
DX: L25.9 Unspecified contact dermatitis, unspecified cause (principal); E78.00 Pure hypercholesterolemia, unspecified; I10 Essential (primary) hypertension; J45.909 Unspecified asthma, uncomplicated; Z88.5 Allergy status to narcotic agent; Z88.2 Allergy status to sulfonamides; Z79.899 Other long term (current) drug therapy; Z79.51 Long term (current) use of inhaled steroids
CPT/HCPCS: 99282; A9270; 99283

== ENCOUNTER 2025-03-02 21:16 | Emergency (ER) | payer BC, MEDICAID ==
[2025-03-02] MEDS: methylPREDNISolone Acetate 80 MG/ML SDV IM ONE (21:52)
[2025-03-02] MEDS: cefTRIAXone 1 GM, Lidocaine 1% 2.1 ML IM SCH (21:53)
== END 2025-03-02 22:20 | disposition home or self-care (01) ==
LOC: CC.ED 21:16
DX: J40 Bronchitis, not specified as acute or chronic (principal); I10 Essential (primary) hypertension; F17.200 Nicotine dependence, unspecified, uncomplicated; Z88.2 Allergy status to sulfonamides; Z88.8 Allergy status to other drugs, medicaments and biological substances; Z79.899 Other long term (current) drug therapy; Z90.710 Acquired absence of both cervix and uterus
CPT/HCPCS: 96372; 99283; J0696; J1010; J2003